=== PATIENT | female | born 1935 | race Caucasian/White ===

== ENCOUNTER 2018-03-04 09:56 | Outpatient (CLI) | payer OTHER ==
[~2018-03-04 09:56] MED LIST: CALCITRIOL0.25 MCG PO; CLONAZEPAM1 MG PO; DIOVAN320 MG PO; DOCUSATE SODIU100 MG PO; GABAPENTIN800 MG PO; HUMULIN 70100 UNIT/2; NORVASC2.5 M1 PO; PERCOCET 5-3251 EACH PO; SYNTHROID112 MCG PO; VITAMIN D250000 UNIT PO
== END 2018-03-04 17:05 | disposition home or self-care (01) ==
LOC: RX STUDY 09:56
DX: R13.13 Dysphagia, pharyngeal phase (principal)